=== PATIENT | male | born 1955 | race Caucasian/White ===

== ENCOUNTER 2018-12-11 10:15 | Inpatient (IN) | payer MEDICAID, MEDICARE, OTHER ==
[~2018-12-11] VITALS: Ht 182.9 cm; Wt 100.7 kg
[2018-12-11 12:21] LABS: BASOPHILS % 0.9 % (0.0-2.0); EOSINOPHILS % 2.3 % (0.0-5.0); HEMATOCRIT. 35.2 % (42.0-52.0); HEMOGLOBIN. 11.8 g/dL (14.0-18.0); LYMPHOCYTES % 24.8 % (20.0-50.0); MEAN CORPUSCULAR HEMOGLOBIN 29.2 pg (28.0-32.0); MEAN CORPUSCULAR VOLUME 87.4 fL (80.0-94.0); MEAN PLATELET VOLUME 7.5 fl (7.4-10.4); MONOCYTES % 8.2 % (2.0-8.0); NEUTROPHILS % 63.8 % (40.0-76.0); PLATELET 215 x1000/uL (130-400); RED BLOOD CELL COUNT 4.03 mill/uL (4.7-6.1); RED CELL DISTRIBUTION WIDTH 15.8 % (11.6-14.6)
[2018-12-11 12:29] LABS: CHLORIDE 106 mEq/L (98-107)
[2018-12-11] MEDS ORDERED: CLINDAMYCIN 900 MG in DEXTROSE 5% WATER 50 ML IV ONE (12:30)
[2018-12-11] MEDS: VANCOMYCIN 1 G PREMIX 200 ML IV SCH ×4 (13:07→23:25)
[2018-12-11 13:24] LABS: PROTHROMBIN TIME 9.9 sec (9.6-11.0)
[2018-12-11] MEDS ORDERED: SODIUM CHLORIDE 0.9% 1,000 ML IV ONE (14:30)
[2018-12-11] MEDS ORDERED: GUAIFENESIN 200MG/10ML SUGAR FREE UDC PO PRN (16:00)
[2018-12-11] MEDS ORDERED: VANCOMYCIN 1 G PREMIX 200 ML IV SCH (16:00)
[2018-12-11] MEDS ORDERED: ONDANSETRON HCL 4MG/2ML INJ IV PRN (16:00)
[2018-12-11] MEDS ORDERED: IPRATROPIUM/ALBUTEROL 0.5-3(2.5)MG/3ML NEB INH PRN (16:00)
[2018-12-11] MEDS ORDERED: CLONIDINE 0.1MG TABLET PO PRN (16:00)
[2018-12-11] MEDS ORDERED: MAGNESIUM/ALUMINUM HYDROXIDE/SIMETHICONE 30ML UDC PO PRN (16:00)
[2018-12-11] MEDS ORDERED: NITROGLYCERIN 0.4MG TABLET SL SL PRN (16:00)
[2018-12-11] MEDS ORDERED: DOCUSATE SODIUM 100MG CAPSULE PO PRN (16:00)
[2018-12-11] MEDS ORDERED: DEXTROSE 50% WATER 50ML SYRINGE IV PRN (16:00)
[2018-12-11] MEDS ORDERED: LEVOFLOXACIN 500MG PREMIX 100 ML IV NR (17:04)
[2018-12-11 20:00] VITALS: BP 128/66
[2018-12-11] MEDS ORDERED: LEVOFLOXACIN 500MG PREMIX 100 ML IV SCH (20:30)
[2018-12-11] MEDS: GABAPENTIN 400MG CAPSULE PO SCH (21:02)
[2018-12-11] MEDS: ATORVASTATIN CALCIUM 40MG TABLET PO SCH (21:02)
[2018-12-11] MEDS: FAMOTIDINE 20MG TABLET PO SCH (21:02)
[2018-12-11] MEDS: BLOOD SUGAR DIAGNOSTIC STRIP TEST SCH (21:05)
[2018-12-11] MEDS: ASCORBIC ACID 500 MG TABLET PO SCH (21:08)
[2018-12-11] MEDS: METOPROLOL TARTRATE 25MG TABLET PO SCH (21:08)
[2018-12-11] MEDS: ENOXAPARIN 40MG/0.4ML SYR SUBCUT SCH (21:09)
[2018-12-11] MEDS: ZOLPIDEM TARTRATE 5MG TABLET PO PRN (21:10)
[2018-12-11] MEDS: INSULIN GLARGINE UD 100 UNITS/ML SYR SUBCUT SCH (21:53)
[2018-12-11] MEDS: INSULIN LISPRO 100 UNITS/ML SUBCUT SCH (21:55)
[2018-12-12] VITALS: BP 120/62
[2018-12-12] MEDS ORDERED: GABA-290 PO (00:21)
[2018-12-12] MEDS ORDERED: METO-385 PO (00:21)
[2018-12-12] MEDS ORDERED: SILV50CR31 TP (00:21)
[2018-12-12] MEDS ORDERED: LOVA10TA54 PO (00:21)
[2018-12-12] MEDS ORDERED: INSU100I24 SQ ×2 (00:21)
[2018-12-12] MEDS ORDERED: OMEP20TA2 PO (00:21)
[2018-12-12] MEDS ORDERED: LOSA25TA26 PO (00:21)
[2018-12-12] MEDS ORDERED: NAPR500T7 PO (00:21)
[2018-12-12] MEDS ORDERED: TRAM50TA3 PO (00:21)
[2018-12-12 04:00] VITALS: BP 130/69
[2018-12-12] MEDS: KETOROLAC 15MG/ML VIAL IV PRN (04:53)
[2018-12-12] MEDS: GABAPENTIN 400MG CAPSULE PO SCH ×3 (05:11→21:13)
[2018-12-12] MEDS: BLOOD SUGAR DIAGNOSTIC STRIP TEST SCH ×4 (06:13→21:14)
[2018-12-12 08:00] VITALS: BP 115/64
[2018-12-12] MEDS: FAMOTIDINE 20MG TABLET PO SCH ×2 (08:02→21:16)
[2018-12-12] MEDS: METOPROLOL TARTRATE 25MG TABLET PO SCH ×2 (08:02→21:18)
[2018-12-12] MEDS: ZINC SULFATE 220 MG ( 50 ) CAPSULE PO SCH (08:02)
[2018-12-12] MEDS: ASCORBIC ACID 500 MG TABLET PO SCH ×2 (08:02→21:16)
[2018-12-12] MEDS: ASPIRIN 325MG EC TABLET PO SCH (08:02)
[2018-12-12] MEDS: TRAMADOL 50MG TABLET PO PRN ×2 (08:08→17:15)
[2018-12-12] MEDS: INSULIN LISPRO 100 UNITS/ML SUBCUT SCH ×4 (08:37→21:32)
[2018-12-12 12:00] VITALS: BP 120/70
[2018-12-12] MEDS: SILVER SULFADIAZINE 1% CREAM 50GM TOP SCH (13:20)
[2018-12-12 16:00] VITALS: BP 106/62
[2018-12-12] MEDS: VANCOMYCIN 1 G PREMIX 200 ML IV SCH (17:15)
[2018-12-12 20:00] VITALS: BP 127/74
[2018-12-12] MEDS: LEVOFLOXACIN 500MG PREMIX 100 ML IV SCH (21:12)
[2018-12-12] MEDS: ZOLPIDEM TARTRATE 5MG TABLET PO PRN (21:16)
[2018-12-12] MEDS: ATORVASTATIN CALCIUM 40MG TABLET PO SCH (21:17)
[2018-12-12] MEDS: ENOXAPARIN 40MG/0.4ML SYR SUBCUT SCH (21:17)
[2018-12-12] MEDS: INSULIN GLARGINE UD 100 UNITS/ML SYR SUBCUT SCH (23:25)
[2018-12-13] VITALS (13 sets, daily range): BP systolic 99–164; BP diastolic 46–84
[2018-12-13] MEDS: GABAPENTIN 400MG CAPSULE PO SCH ×3 (06:27→21:51)
[2018-12-13] MEDS: BLOOD SUGAR DIAGNOSTIC STRIP TEST SCH ×4 (06:27→20:19)
[2018-12-13 06:55] LABS: EOSINOPHILS % 5.5 % (0.0-5.0); HEMATOCRIT. 34.4 % (42.0-52.0); HEMOGLOBIN. 11.5 g/dL (14.0-18.0); LYMPHOCYTES % 32.8 % (20.0-50.0); MEAN CORPUSCULAR HEMOGLOBIN 29.3 pg (28.0-32.0); MEAN CORPUSCULAR VOLUME 87.4 fL (80.0-94.0); MEAN PLATELET VOLUME 7.7 fl (7.4-10.4); MONOCYTES % 9.7 % (2.0-8.0); PLATELET 216 x1000/uL (130-400); RED BLOOD CELL COUNT 3.94 mill/uL (4.7-6.1); RED CELL DISTRIBUTION WIDTH 15.7 % (11.6-14.6)
[2018-12-13] MEDS: ASCORBIC ACID 500 MG TABLET PO SCH ×2 (08:09→21:00)
[2018-12-13] MEDS: ZINC SULFATE 220 MG ( 50 ) CAPSULE PO SCH (08:09)
[2018-12-13] MEDS: ASPIRIN 325MG EC TABLET PO SCH (08:09)
[2018-12-13] MEDS: FAMOTIDINE 20MG TABLET PO SCH ×2 (08:09→20:15)
[2018-12-13] MEDS: METOPROLOL TARTRATE 25MG TABLET PO SCH ×2 (08:11→20:16)
[2018-12-13] MEDS: INSULIN LISPRO 100 UNITS/ML SUBCUT SCH ×4 (08:11→20:19)
[2018-12-13] MEDS: TRAMADOL 50MG TABLET PO PRN (08:11)
[2018-12-13] MEDS ORDERED: HEPARIN SODIUM 1,000 UNIT/1ML VIAL IV ONE (13:18)
[2018-12-13] MEDS: SILVER SULFADIAZINE 1% CREAM 50GM TOP SCH (13:21)
[2018-12-13] MEDS ORDERED: MIDAZOLAM HCL 2 MG/2 ML VIAL ONE (16:03)
[2018-12-13] MEDS ORDERED: LIDOCAINE HCL 1% 20ML VIAL (Pyxis) INJ ONE (16:04)
[2018-12-13] MEDS ORDERED: IODIXANOL 320MG/ML 100 ML BOTTLE IV ONE (16:04)
[2018-12-13] MEDS ORDERED: FENTANYL CITRATE/PF 50MCG/ML 2ML VIAL ONE (16:04)
[2018-12-13] MEDS ORDERED: VANCOMYCIN 1 G PREMIX 200 ML IV NR (17:00)
[2018-12-13] MEDS ORDERED: IOHEXOL-300 100 ML BOTTLE ONE (17:04)
[2018-12-13] MEDS: SODIUM CHLORIDE 0.9% 1,000 ML IV SCH (19:19)
[2018-12-13] MEDS: ATORVASTATIN CALCIUM 40MG TABLET PO SCH (20:15)
[2018-12-13] MEDS: LEVOFLOXACIN 500MG PREMIX 100 ML IV SCH (21:49)
[2018-12-13] MEDS: INSULIN GLARGINE UD 100 UNITS/ML SYR SUBCUT SCH (21:57)
[2018-12-14] VITALS (11 sets, daily range): BP systolic 113–137; BP diastolic 59–80
[2018-12-14] MEDS: TRAMADOL 50MG TABLET PO PRN (04:47)
[2018-12-14] MEDS: BLOOD SUGAR DIAGNOSTIC STRIP TEST SCH ×4 (06:15→21:17)
[2018-12-14] MEDS: GABAPENTIN 400MG CAPSULE PO SCH ×3 (06:15→21:00)
[2018-12-14] MEDS: SILVER SULFADIAZINE 1% CREAM 50GM TOP SCH (09:00)
[2018-12-14] MEDS: INSULIN LISPRO 100 UNITS/ML SUBCUT SCH ×4 (09:09→21:58)
[2018-12-14] MEDS: ASPIRIN 325MG EC TABLET PO SCH (09:10)
[2018-12-14] MEDS: FAMOTIDINE 20MG TABLET PO SCH (09:10)
[2018-12-14] MEDS: ZINC SULFATE 220 MG ( 50 ) CAPSULE PO SCH (09:10)
[2018-12-14] MEDS: METOPROLOL TARTRATE 25MG TABLET PO SCH ×2 (09:10→21:01)
[2018-12-14] MEDS: ASCORBIC ACID 500 MG TABLET PO SCH ×2 (09:10→21:00)
[2018-12-14] MEDS: ENOXAPARIN 40MG/0.4ML SYR SUBCUT SCH (12:08)
[2018-12-14] MEDS: SODIUM CHLORIDE 0.9% 1,000 ML IV SCH (14:06)
[2018-12-14] MEDS: LEVOFLOXACIN 500MG PREMIX 100 ML IV SCH (20:59)
[2018-12-14] MEDS: ATORVASTATIN CALCIUM 40MG TABLET PO SCH (21:00)
[2018-12-14] MEDS: VANCOMYCIN 1 G PREMIX 200 ML IV SCH (21:00)
[2018-12-14] MEDS: INSULIN GLARGINE UD 100 UNITS/ML SYR SUBCUT SCH (23:05)
[2018-12-15] VITALS (7 sets, daily range): BP systolic 107–142; BP diastolic 62–81
[2018-12-15] MEDS: GABAPENTIN 400MG CAPSULE PO SCH ×3 (06:25→21:52)
[2018-12-15] MEDS: BLOOD SUGAR DIAGNOSTIC STRIP TEST SCH ×4 (06:27→21:58)
[2018-12-15] MEDS: INSULIN LISPRO 100 UNITS/ML SUBCUT SCH ×4 (06:50→21:30)
[2018-12-15] MEDS: KETOROLAC 15MG/ML VIAL IV PRN (07:47)
[2018-12-15] MEDS: ENOXAPARIN 40MG/0.4ML SYR SUBCUT SCH (08:42)
[2018-12-15] MEDS: ASCORBIC ACID 500 MG TABLET PO SCH ×2 (08:56→21:52)
[2018-12-15] MEDS: ZINC SULFATE 220 MG ( 50 ) CAPSULE PO SCH (08:56)
[2018-12-15] MEDS: ASPIRIN 325MG EC TABLET PO SCH (08:56)
[2018-12-15] MEDS: CLOPIDOGREL 75MG TABLET PO SCH (08:56)
[2018-12-15] MEDS: FAMOTIDINE 20MG TABLET PO SCH (08:56)
[2018-12-15] MEDS: METOPROLOL TARTRATE 25MG TABLET PO SCH ×2 (08:57→21:53)
[2018-12-15] MEDS: SILVER SULFADIAZINE 1% CREAM 50GM TOP SCH (09:04)
[2018-12-15] MEDS: SODIUM CHLORIDE 0.9% 1,000 ML IV SCH (10:30)
[2018-12-15] MEDS: ATORVASTATIN CALCIUM 40MG TABLET PO SCH (21:52)
[2018-12-15] MEDS: VANCOMYCIN 1 G PREMIX 200 ML IV SCH (21:58)
[2018-12-15] MEDS: INSULIN GLARGINE UD 100 UNITS/ML SYR SUBCUT SCH (22:21)
[2018-12-16] VITALS: BP 128/62
[2018-12-16] MEDS: LEVOFLOXACIN 500MG PREMIX 100 ML IV SCH (00:59)
[2018-12-16 04:00] VITALS: BP 105/63
[2018-12-16] MEDS: TRAMADOL 50MG TABLET PO PRN (04:17)
[2018-12-16] MEDS: GABAPENTIN 400MG CAPSULE PO SCH ×3 (06:22→21:45)
[2018-12-16] MEDS: BLOOD SUGAR DIAGNOSTIC STRIP TEST SCH ×4 (06:24→21:00)
[2018-12-16] MEDS: INSULIN LISPRO 100 UNITS/ML SUBCUT SCH ×4 (06:48→22:21)
[2018-12-16 08:29] VITALS: BP 124/61
[2018-12-16] MEDS: ASPIRIN 325MG EC TABLET PO SCH (10:19)
[2018-12-16] MEDS: ENOXAPARIN 40MG/0.4ML SYR SUBCUT SCH (10:19)
[2018-12-16] MEDS: CLOPIDOGREL 75MG TABLET PO SCH (10:20)
[2018-12-16] MEDS: ZINC SULFATE 220 MG ( 50 ) CAPSULE PO SCH (10:20)
[2018-12-16] MEDS: FAMOTIDINE 20MG TABLET PO SCH (10:20)
[2018-12-16] MEDS: METOPROLOL TARTRATE 25MG TABLET PO SCH ×2 (10:20→20:59)
[2018-12-16] MEDS: ASCORBIC ACID 500 MG TABLET PO SCH ×2 (10:20→20:52)
[2018-12-16 12:06] VITALS: BP 122/69
[2018-12-16] MEDS: SILVER SULFADIAZINE 1% CREAM 25GM TOP SCH (15:44)
[2018-12-16 15:49] VITALS: BP 130/69
[2018-12-16 20:00] VITALS: BP 139/83
[2018-12-16] MEDS: LEVOFLOXACIN 500MG TABLET PO SCH (20:53)
[2018-12-16] MEDS: ATORVASTATIN CALCIUM 40MG TABLET PO SCH (20:53)
[2018-12-16] MEDS: VANCOMYCIN 1 G PREMIX 200 ML IV SCH (21:42)
[2018-12-16] MEDS: INSULIN GLARGINE UD 100 UNITS/ML SYR SUBCUT SCH (21:44)
[2018-12-17] VITALS: BP_SYST 114; BP_SYST 130; BP_DIAS 64; BP_DIAS 67
[2018-12-17 04:00] VITALS: BP 114/64
[2018-12-17] MEDS: GABAPENTIN 400MG CAPSULE PO SCH ×3 (05:20→22:19)
[2018-12-17] MEDS: BLOOD SUGAR DIAGNOSTIC STRIP TEST SCH ×4 (07:00→20:12)
[2018-12-17] MEDS: INSULIN LISPRO 100 UNITS/ML SUBCUT SCH ×4 (07:00→20:20)
[2018-12-17 08:25] VITALS: BP 117/62
[2018-12-17] MEDS: ASPIRIN 325MG EC TABLET PO SCH (09:39)
[2018-12-17] MEDS: ZINC SULFATE 220 MG ( 50 ) CAPSULE PO SCH (09:39)
[2018-12-17] MEDS: ASCORBIC ACID 500 MG TABLET PO SCH ×2 (09:39→20:11)
[2018-12-17] MEDS: FAMOTIDINE 20MG TABLET PO SCH (09:39)
[2018-12-17] MEDS: METOPROLOL TARTRATE 25MG TABLET PO SCH ×2 (09:40→20:11)
[2018-12-17] MEDS: CLOPIDOGREL 75MG TABLET PO SCH (09:40)
[2018-12-17] MEDS: SILVER SULFADIAZINE 1% CREAM 25GM TOP SCH (09:41)
[2018-12-17] MEDS: ENOXAPARIN 40MG/0.4ML SYR SUBCUT SCH (09:41)
[2018-12-17 11:45] VITALS: BP 149/76
[2018-12-17 16:10] VITALS: BP 106/61
[2018-12-17 20:00] VITALS: BP 144/78
[2018-12-17] MEDS: LEVOFLOXACIN 500MG TABLET PO SCH (20:11)
[2018-12-17] MEDS: ATORVASTATIN CALCIUM 40MG TABLET PO SCH (20:11)
[2018-12-17] MEDS: ENOXAPARIN 30MG/0.3ML SYR SUBCUT SCH (20:28)
[2018-12-17] MEDS: INSULIN GLARGINE UD 100 UNITS/ML SYR SUBCUT SCH (22:24)
[2018-12-18] VITALS: BP 120/71
[2018-12-18] MEDS: GABAPENTIN 400MG CAPSULE PO SCH ×3 (06:16→22:06)
[2018-12-18] MEDS: BLOOD SUGAR DIAGNOSTIC STRIP TEST SCH ×4 (06:20→21:00)
[2018-12-18 07:36] VITALS: BP 104/55
[2018-12-18] MEDS: INSULIN LISPRO 100 UNITS/ML SUBCUT SCH ×5 (07:37→22:47)
[2018-12-18] MEDS: METOPROLOL TARTRATE 25MG TABLET PO SCH ×2 (08:08→22:07)
[2018-12-18] MEDS: CLOPIDOGREL 75MG TABLET PO SCH (09:06)
[2018-12-18] MEDS: ASPIRIN 325MG EC TABLET PO SCH (09:06)
[2018-12-18] MEDS: ASCORBIC ACID 500 MG TABLET PO SCH ×2 (09:06→22:06)
[2018-12-18] MEDS: ZINC SULFATE 220 MG ( 50 ) CAPSULE PO SCH (09:06)
[2018-12-18] MEDS: ENOXAPARIN 30MG/0.3ML SYR SUBCUT SCH ×2 (09:06→22:08)
[2018-12-18] MEDS: FAMOTIDINE 20MG TABLET PO SCH (09:06)
[2018-12-18] MEDS: SILVER SULFADIAZINE 1% CREAM 25GM TOP SCH (09:09)
[2018-12-18] MEDS ORDERED: VANCOMYCIN 1250MG in DEXTROSE 5% WATER 250ML IV SCH (10:00)
[2018-12-18 11:50] VITALS: BP 104/64
[2018-12-18] MEDS: ACETAMINOPHEN 325MG TABLET PO PRN ×2 (12:19→18:32)
[2018-12-18 16:00] VITALS: BP 124/61
[2018-12-18] MEDS: VANCOMYCIN 1250MG in DEXTROSE 5% WATER 250ML IV SCH (17:00)
[2018-12-18] MEDS: SODIUM CHLORIDE 0.9% 1,000 ML IV SCH (17:56)
[2018-12-18 20:00] VITALS: BP 123/70
[2018-12-18] MEDS: ATORVASTATIN CALCIUM 40MG TABLET PO SCH (22:06)
[2018-12-18] MEDS: LEVOFLOXACIN 500MG TABLET PO SCH (22:15)
[2018-12-18] MEDS: INSULIN GLARGINE UD 100 UNITS/ML SYR SUBCUT SCH (22:43)
[2018-12-19] VITALS (7 sets, daily range): BP systolic 112–125; BP diastolic 45–80
[2018-12-19] MEDS: GABAPENTIN 400MG CAPSULE PO SCH ×2 (06:56→13:51)
[2018-12-19] MEDS: BLOOD SUGAR DIAGNOSTIC STRIP TEST SCH ×3 (06:57→16:39)
[2018-12-19] MEDS: INSULIN LISPRO 100 UNITS/ML SUBCUT SCH ×3 (07:34→17:19)
[2018-12-19] MEDS: FAMOTIDINE 20MG TABLET PO SCH (08:55)
[2018-12-19] MEDS: ZINC SULFATE 220 MG ( 50 ) CAPSULE PO SCH (08:55)
[2018-12-19] MEDS: ASCORBIC ACID 500 MG TABLET PO SCH (08:56)
[2018-12-19] MEDS: ASPIRIN 325MG EC TABLET PO SCH (08:56)
[2018-12-19] MEDS: METOPROLOL TARTRATE 25MG TABLET PO SCH (08:56)
[2018-12-19] MEDS: ENOXAPARIN 30MG/0.3ML SYR SUBCUT SCH (08:57)
[2018-12-19] MEDS: CLOPIDOGREL 75MG TABLET PO SCH (08:57)
[2018-12-19] MEDS: SILVER SULFADIAZINE 1% CREAM 25GM TOP SCH (08:58)
[2018-12-19] MEDS: ACETAMINOPHEN 325MG TABLET PO PRN (09:07)
[2018-12-19] MEDS: SODIUM CHLORIDE 0.9% 1,000 ML IV SCH (13:52)
[2018-12-19] MEDS: VANCOMYCIN 1250MG in DEXTROSE 5% WATER 250ML IV SCH (14:09)
[2018-12-20] MEDS ORDERED: VANCOMYCIN 1250MG in DEXTROSE 5% WATER 250ML IV SCH (21:00)
== END 2018-12-19 17:45 | DRG 252 ==
LOC: ER 10:15 → 7WST 13:34 → EDBEDREQ 13:52 → ENRESERV 15:30 → 3WST 12-13 18:32 → 6EST 12-15 11:21
PROVIDERS: ADMIT Internal Medicine; ATTEND Internal Medicine
PROC: 0QBQ0ZZ Excision of Right Toe Phalanx, Open Approach (ICD-10-PCS; principal; 2018-12-12)
PROC: 0JBR0ZZ Excision of Left Foot Subcutaneous Tissue and Fascia, Open Approach (ICD-10-PCS; 2018-12-12)
PROC: 047P3ZZ Dilation of Right Anterior Tibial Artery, Percutaneous Approach (ICD-10-PCS; 2018-12-13)
PROC: 047R3ZZ Dilation of Right Posterior Tibial Artery, Percutaneous Approach (ICD-10-PCS; 2018-12-13)
PROC: B41F1ZZ Fluoroscopy of Right Lower Extremity Arteries using Low Osmolar Contrast (ICD-10-PCS; 2018-12-13)
DX: E11.52 Type 2 diabetes mellitus with diabetic peripheral angiopathy with gangrene (principal); N17.0 Acute kidney failure with tubular necrosis; E44.0 Moderate protein-calorie malnutrition; L97.429 Non-pressure chronic ulcer of left heel and midfoot with unspecified severity; M86.171 Other acute osteomyelitis, right ankle and foot; I70.261 Atherosclerosis of native arteries of extremities with gangrene, right leg; E11.69 Type 2 diabetes mellitus with other specified complication; L97.529 Non-pressure chronic ulcer of other part of left foot with unspecified severity; E78.5 Hyperlipidemia, unspecified; E11.65 Type 2 diabetes mellitus with hyperglycemia; D63.8 Anemia in other chronic diseases classified elsewhere; E11.22 Type 2 diabetes mellitus with diabetic chronic kidney disease; E11.621 Type 2 diabetes mellitus with foot ulcer; E66.9 Obesity, unspecified; E87.5 Hyperkalemia; I70.244 Atherosclerosis of native arteries of left leg with ulceration of heel and midfoot; E11.42 Type 2 diabetes mellitus with diabetic polyneuropathy; I12.9 Hypertensive chronic kidney disease with stage 1 through stage 4 chronic kidney disease, or unspecified chronic kidney disease; I99.8 Other disorder of circulatory system; N18.9 Chronic kidney disease, unspecified; Z96.659 Presence of unspecified artificial knee joint; Z59.0 Homelessness; Z91.11 Patient's noncompliance with dietary regimen; Z91.14 Patient's other noncompliance with medication regimen; Z68.30 Body mass index [BMI] 30.0-30.9, adult; Z88.0 Allergy status to penicillin; Z56.0 Unemployment, unspecified; Z79.4 Long term (current) use of insulin; Z79.899 Other long term (current) drug therapy; Z22.322 Carrier or suspected carrier of Methicillin resistant Staphylococcus aureus
CPT/HCPCS: 36415; 37228; 37232; 71045; 73630; 73718; 75710; 80048; 80061; 80202; 82962; 83036; 83605; 85347; 85651; 86140; 87070; 87075; 87077; 88304; 88311; 93005; 93306; 93923; 93970; 94640; 96374; 96375; 99285; C1725; C1760; C1769; C1887; C1893; C1894; J1644; J1650; J1815; J1885; J1956; J2250; J3010; J3370; J3490; J7030; J7040; J7050; J7060; J7620; Q9967; A4315

== ENCOUNTER 2019-01-15 09:37 | Emergency (ER) | payer MEDICARE ==
[~2019-01-15] VITALS: Ht 177.8 cm; Wt 98.0 kg
[~2019-01-15 09:37] MED LIST: GABA-290 PO; INSU100I24 SQ; LOSA25TA26 PO; LOVA10TA54 PO; METO-385 PO; NAPR500T7 PO; OMEP20TA2 PO; SILV50CR31 TP; TRAM50TA3 PO
[2019-01-15] MEDS ORDERED: BACITRACIN ZINC OINT UDPKT TOP ONE (11:00)
[2019-01-15] MEDS ORDERED: CLINDAMYCIN PHOSPHATE 600MG/4ML VIAL IM ONE (11:00)
[2019-01-15 11:22] LABS: CHLORIDE 108 mEq/L (98-107)
[2019-01-15 13:11] VITALS: BP 135/66
== END 2019-01-15 13:13 | disposition home or self-care (01) ==
LOC: ER 09:37
DX: E11.52 Type 2 diabetes mellitus with diabetic peripheral angiopathy with gangrene (principal); I96 Gangrene, not elsewhere classified; I10 Essential (primary) hypertension; Z88.0 Allergy status to penicillin; Z96.659 Presence of unspecified artificial knee joint; Z98.890 Other specified postprocedural states; Z79.4 Long term (current) use of insulin
CPT/HCPCS: 36415; 80053; 96372; 99283; J3490

== ENCOUNTER → 2019-01-18 | Day surgery (SDC) | payer MEDICARE ==
[~2019-01-18] MED LIST changes: +LIDOCAINE HCL 1% 20ML VIAL (Pyxis) INJ ONE
== END | disposition home or self-care (01) ==
LOC: ANGIO 09:23
PROVIDERS: ATTEND Podiatrist Foot & Ankle Surgery
DX: E11.69 Type 2 diabetes mellitus with other specified complication (principal); M86.8X7 Other osteomyelitis, ankle and foot; E11.621 Type 2 diabetes mellitus with foot ulcer; Z88.0 Allergy status to penicillin; Z79.4 Long term (current) use of insulin; Z79.899 Other long term (current) drug therapy; Z83.3 Family history of diabetes mellitus
CPT/HCPCS: 36573; C1725; J3490; J7040

== ENCOUNTER 2019-06-26 06:54 | Emergency (ER) | payer MEDICARE ==
[~2019-06-26] VITALS: Ht 177.8 cm; Wt 96.0 kg
[~2019-06-26 06:54] MED LIST changes: -LIDOCAINE HCL 1% 20ML VIAL (Pyxis) INJ ONE
[2019-06-26] MEDS ORDERED: TETRACAINE 0.5% OPHTH DROPS 4ML LEFTEYE ONE (08:45)
[2019-06-26] MEDS ORDERED: FLUORESCEIN SODIUM 1MG/STRIP LEFTEYE ONE (08:45)
[2019-06-26 09:12] LABS: EOSINOPHILS % 3.4 % (0.0-5.0); HEMATOCRIT. 33.5 % (42.0-52.0); HEMOGLOBIN. 10.9 g/dL (14.0-18.0); LYMPHOCYTES % 23.7 % (20.0-50.0); MEAN CORPUSCULAR VOLUME 85.5 fL (80.0-94.0); MEAN PLATELET VOLUME 7.7 fl (7.4-10.4); NEUTROPHILS % 63.9 % (40.0-76.0); PLATELET 192 x1000/uL (130-400); RED BLOOD CELL COUNT 3.91 mill/uL (4.7-6.1); RED CELL DISTRIBUTION WIDTH 15.9 % (11.6-14.6)
[2019-06-26 09:19] LABS: CHLORIDE 109 mEq/L (98-107); PROTHROMBIN TIME 10.7 sec (9.6-11.0)
[2019-06-26] MEDS ORDERED: INSULIN REGULAR (HUMULIN R) UD 100 UNITS/ML SYR SUBCUT ONE (09:45)
[2019-06-26 09:47] VITALS: BP 167/86
== END 2019-06-26 09:47 | disposition home or self-care (01) ==
LOC: ER 06:54
DX: H43.11 Vitreous hemorrhage, right eye (principal); E11.9 Type 2 diabetes mellitus without complications; I10 Essential (primary) hypertension; Z96.659 Presence of unspecified artificial knee joint; Z88.0 Allergy status to penicillin; Z79.4 Long term (current) use of insulin
CPT/HCPCS: 36415; 80053; 85025; 85610; 99283; J1815